=== PATIENT | female | born 1950 | race Asian ===

== ENCOUNTER 2018-08-06 10:16 | Inpatient (IN) | payer OTHER, MEDICAID ==
[~2018-08-06 10:16] MED LIST: BUPIVACAINE 0.75%/DEXT (SPINAL) 2 ML INJ
[2018-08-06] MEDS ORDERED: LABETALOL HCL 20MG INJ IV (12:30)
[2018-08-06] MEDS ORDERED: MEPERIDINE 25 MG INJ IV (12:30)
[2018-08-06] MEDS ORDERED: HYDROmorphONE 1 MG/5 ML IV SYRINGE IV ×3 (12:30)
[2018-08-06] MEDS ORDERED: ONDANSETRON 4 MG INJ IV (12:30)
[2018-08-06] MEDS ORDERED: hydrALAzine 20 MG INJ IV (12:30)
[2018-08-06] MEDS ORDERED: PROPOFOL 20 ML (12:44)
[2018-08-06] MEDS ORDERED: CEFAZOLIN 1 GM INJ (12:44)
[2018-08-06] MEDS ORDERED: ONDANSETRON 4 MG INJ (12:45)
[2018-08-06] MEDS ORDERED: MIDAZOLAM 1 MG/ML 2 ML INJ (12:45)
[2018-08-06] MEDS ORDERED: morphine SULFATE/PF (10 MG/10 ML) INJ (12:45)
[2018-08-06] MEDS ORDERED: FENTAnyl 50 MCG/ML VIAL (12:45)
[2018-08-06] MEDS ORDERED: METOCLOPRAMIDE 10 MG INJ (12:45)
[2018-08-06] MEDS: TRANEXAMIC ACID 1,000 MG in DEXTROSE 5% 100 ML IV (13:00)
[2018-08-06] MEDS ORDERED: ACETAMINOPHEN 1000MG/100ML IV 100 ML (13:26)
[2018-08-06] MEDS ORDERED: PHENYLephrine (100 MCG/ML) 5ML SYG (13:27)
[2018-08-06] MEDS ORDERED: ROPIVACAINE 0.2% 20 ML VIAL (15:25)
[2018-08-06 17:07] LABS: HEMATOCRIT 32.8 % (37.0-47.0); HEMOGLOBIN 10.7 g/dl (12.0-16.0)
[2018-08-06] MEDS ORDERED: DIPHENHYDRAMINE 50 MG INJ (17:16)
[2018-08-06] MEDS: DIPHENHYDRAMINE 50 MG INJ IV (17:17)
[2018-08-06] MEDS: CEFAZOLIN 1 GM/50 ML (PMX) 50 ML IVPB (17:23)
[2018-08-06 17:26] LABS: ANION GAP 9 (5-13); BLOOD UREA NITROGEN 22 mg/dl (7-20); CALCIUM 8.9 mg/dl (8.4-10.2); CARBON DIOXIDE 24 mmol/L (21-31); CHLORIDE 108 mmol/L (97-110); CREATININE 0.89 mg/dl (0.44-1.00); Estimated GFR > 60 mL/min (>60); GLUCOSE 115 mg/dl (70-220); SODIUM 141 mmol/L (135-144)
[2018-08-06] MEDS: DEXTROSE 5%-LR 1,000 ML IV (19:30)
[2018-08-06] MEDS: DIPHENHYDRAMINE 25 MG CAP PO (22:52)
[2018-08-07] MEDS ORDERED: GLUCOSE GEL 15 GRAM TUBE PO ×2 (01:00)
[2018-08-07] MEDS ORDERED: GLUCOSE GEL 15 GRAM TUBE BUCCAL (01:00)
[2018-08-07] MEDS ORDERED: GLUCAGON 1 MG INJ IM (01:00)
[2018-08-07] MEDS ORDERED: DEXTROSE 50% 50 ML SYRINGE IV ×2 (01:00)
[2018-08-07] MEDS: ACCU-CHEK XX (01:20)
[2018-08-07] MEDS: DIPHENHYDRAMINE 25 MG CAP PO (01:27)
[2018-08-07] MEDS: SOD CHLORIDE 0.9% 1,000 ML IV (01:27)
[2018-08-07] MEDS: CEFAZOLIN 1 GM/50 ML (PMX) 50 ML IVPB ×2 (01:28→09:03)
[2018-08-07] MEDS: INSULIN GLARGINE [LANTus] (100 UNITS/ML) SYG SC ×2 (03:53→20:21)
[2018-08-07 05:21] LABS: ADD MAN DIFF? NO
[2018-08-07 05:32] LABS: BASOPHILS % 0.3 % (0.0-2.0); EOSINOPHILS # 0.1 10^3/ul (0.0-0.5); EOSINOPHILS % 0.9 % (0.0-7.0); HEMATOCRIT 32.3 % (37.0-47.0); HEMOGLOBIN 10.7 g/dl (12.0-16.0); LYMPHOCYTES # 1.4 10^3/ul (0.8-2.9); LYMPHOCYTES % 14.2 % (15.0-51.0); MEAN CORPUSCULAR HEMOGLOBIN 31.6 pg (29.0-33.0); MEAN CORPUSCULAR HGB CONC 33.1 g/dl (32.0-37.0); MEAN CORPUSCULAR VOLUME 95.3 fl (82.0-101.0); MEAN PLATELET VOLUME 11.1 fl (7.4-10.4); MONOCYTE # 0.7 10^3/ul (0.3-0.9); MONOCYTES % 6.9 % (0.0-11.0); NEUTROPHIL # 7.4 10^3/ul (1.6-7.5); NEUTROPHILS % 77.2 % (39.0-77.0); PLATELET COUNT 199 10^3/UL (140-415); RED BLOOD COUNT 3.39 10^6/ul (4.20-5.40); RED CELL DISTRIBUTION WIDTH 13.8 % (11.5-14.5)
[2018-08-07 05:32] LABS: WHITE BLOOD COUNT 9.6 10^3/ul (4.8-10.8)
[2018-08-07 05:58] LABS: ANION GAP 9 (5-13); BLOOD UREA NITROGEN 22 mg/dl (7-20); CALCIUM 9.1 mg/dl (8.4-10.2); CARBON DIOXIDE 27 mmol/L (21-31); CHLORIDE 104 mmol/L (97-110); CREATININE 0.84 mg/dl (0.44-1.00); Estimated GFR > 60 mL/min (>60); GLUCOSE 180 mg/dl (70-220); SODIUM 140 mmol/L (135-144)
[2018-08-07] MEDS: morphine 2 MG INJ IV ×2 (06:16→12:05)
[2018-08-07] MEDS: LEVOTHYROXINE 50 MCG TAB PO (06:17)
[2018-08-07] MEDS: INSULIN ASPART [NOVOLOG] 3 ML PEN SC ×7 (07:50→20:21)
[2018-08-07] MEDS: LOSARTAN 50 MG TAB PO (09:03)
[2018-08-07] MEDS: HYDROCODONE/APAP (5/325) TAB PO ×3 (09:12→20:12)
[2018-08-07] MEDS ORDERED: hydrOXYzine HCL 25 MG TAB PO (12:00)
[2018-08-07] MEDS: KETOROLAC 15 MG INJ IV (17:57)
[2018-08-07] MEDS: ATORVASTATIN 10 MG TAB PO (20:12)
[2018-08-07] MEDS: ASPIRIN (EC) 325 MG TAB PO (20:12)
[2018-08-07] MEDS ORDERED: INSULIN GLARGINE [LANTus] (100 UNITS/ML) SYG SC (21:00)
[2018-08-08] MEDS: HYDROCODONE/APAP (5/325) TAB PO ×6 (02:06→22:11)
[2018-08-08 05:12] LABS: ADD MAN DIFF? NO
[2018-08-08 05:17] LABS: WHITE BLOOD COUNT 10.2 10^3/ul (4.8-10.8)
[2018-08-08 05:17] LABS: BASOPHILS % 0.4 % (0.0-2.0); EOSINOPHILS # 0.2 10^3/ul (0.0-0.5); HEMATOCRIT 31.2 % (37.0-47.0); HEMOGLOBIN 10.5 g/dl (12.0-16.0); LYMPHOCYTES # 1.7 10^3/ul (0.8-2.9); LYMPHOCYTES % 16.9 % (15.0-51.0); MEAN CORPUSCULAR HEMOGLOBIN 31.3 pg (29.0-33.0); MEAN CORPUSCULAR HGB CONC 33.7 g/dl (32.0-37.0); MEAN CORPUSCULAR VOLUME 93.1 fl (82.0-101.0); MEAN PLATELET VOLUME 10.7 fl (7.4-10.4); MONOCYTES % 9.3 % (0.0-11.0); NEUTROPHIL # 7.2 10^3/ul (1.6-7.5); NEUTROPHILS % 70.8 % (39.0-77.0); PLATELET COUNT 186 10^3/UL (140-415); RED BLOOD COUNT 3.35 10^6/ul (4.20-5.40); RED CELL DISTRIBUTION WIDTH 13.3 % (11.5-14.5)
[2018-08-08 05:32] LABS: ANION GAP 9 (5-13); BLOOD UREA NITROGEN 20 mg/dl (7-20); CALCIUM 9.4 mg/dl (8.4-10.2); CARBON DIOXIDE 27 mmol/L (21-31); CHLORIDE 102 mmol/L (97-110); CREATININE 0.97 mg/dl (0.44-1.00); Estimated GFR 57 mL/min (>60); GLUCOSE 147 mg/dl (70-220); POTASSIUM 4.1 mmol/L (3.5-5.1); SODIUM 138 mmol/L (135-144)
[2018-08-08] MEDS: LEVOTHYROXINE 50 MCG TAB PO (06:24)
[2018-08-08] MEDS: ASPIRIN (EC) 325 MG TAB PO ×2 (09:05→21:30)
[2018-08-08] MEDS: LOSARTAN 50 MG TAB PO (09:05)
[2018-08-08] MEDS: INSULIN ASPART [NOVOLOG] 3 ML PEN SC ×7 (09:06→21:00)
[2018-08-08] MEDS: KETOROLAC 15 MG INJ IV (16:06)
[2018-08-08] MEDS: DOCUSATE SODIUM 100 MG CAP PO (21:29)
[2018-08-08] MEDS: ATORVASTATIN 10 MG TAB PO (21:30)
[2018-08-08] MEDS: INSULIN GLARGINE [LANTus] (100 UNITS/ML) SYG SC (21:32)
[2018-08-09] MEDS: HYDROCODONE/APAP (5/325) TAB PO ×6 (03:29→21:11)
[2018-08-09 05:38] LABS: ADD MAN DIFF? NO
[2018-08-09 05:42] LABS: BASOPHIL # 0.1 10^3/ul (0.0-0.1); BASOPHILS % 0.5 % (0.0-2.0); EOSINOPHILS # 0.3 10^3/ul (0.0-0.5); EOSINOPHILS % 2.7 % (0.0-7.0); HEMATOCRIT 31.1 % (37.0-47.0); HEMOGLOBIN 10.4 g/dl (12.0-16.0); LYMPHOCYTES # 1.6 10^3/ul (0.8-2.9); LYMPHOCYTES % 15.7 % (15.0-51.0); MEAN CORPUSCULAR HEMOGLOBIN 31.1 pg (29.0-33.0); MEAN CORPUSCULAR HGB CONC 33.4 g/dl (32.0-37.0); MEAN CORPUSCULAR VOLUME 93.1 fl (82.0-101.0); MONOCYTE # 0.9 10^3/ul (0.3-0.9); MONOCYTES % 8.4 % (0.0-11.0); NEUTROPHIL # 7.6 10^3/ul (1.6-7.5); NEUTROPHILS % 72.2 % (39.0-77.0); PLATELET COUNT 198 10^3/UL (140-415); RED BLOOD COUNT 3.34 10^6/ul (4.20-5.40); RED CELL DISTRIBUTION WIDTH 13.4 % (11.5-14.5)
[2018-08-09 05:42] LABS: WHITE BLOOD COUNT 10.5 10^3/ul (4.8-10.8)
[2018-08-09] MEDS: LEVOTHYROXINE 50 MCG TAB PO (06:06)
[2018-08-09 06:16] LABS: ANION GAP 6 (5-13); BLOOD UREA NITROGEN 23 mg/dl (7-20); CALCIUM 9.3 mg/dl (8.4-10.2); CARBON DIOXIDE 29 mmol/L (21-31); CHLORIDE 104 mmol/L (97-110); CREATININE 0.99 mg/dl (0.44-1.00); Estimated GFR 56 mL/min (>60); GLUCOSE 118 mg/dl (70-220); POTASSIUM 4.3 mmol/L (3.5-5.1); SODIUM 139 mmol/L (135-144)
[2018-08-09] MEDS: INSULIN ASPART [NOVOLOG] 3 ML PEN SC ×7 (07:50→20:29)
[2018-08-09] MEDS: ASPIRIN (EC) 325 MG TAB PO ×2 (09:07→20:26)
[2018-08-09] MEDS: POLYETHYLENE GLYCOL 17 GM PACKET PO (09:07)
[2018-08-09] MEDS: LOSARTAN 50 MG TAB PO (09:07)
[2018-08-09] MEDS: DOCUSATE SODIUM 100 MG CAP PO ×2 (09:07→20:27)
[2018-08-09] MEDS: ATORVASTATIN 10 MG TAB PO (20:26)
[2018-08-09] MEDS: INSULIN GLARGINE [LANTus] (100 UNITS/ML) SYG SC (20:29)
[2018-08-10 05:26] LABS: ADD MAN DIFF? NO
[2018-08-10 05:26] LABS: WHITE BLOOD COUNT 10.8 10^3/ul (4.8-10.8)
[2018-08-10 05:27] LABS: BASOPHIL # 0.1 10^3/ul (0.0-0.1); BASOPHILS % 0.6 % (0.0-2.0); EOSINOPHILS # 0.3 10^3/ul (0.0-0.5); EOSINOPHILS % 2.7 % (0.0-7.0); HEMATOCRIT 31.2 % (37.0-47.0); HEMOGLOBIN 10.4 g/dl (12.0-16.0); LYMPHOCYTES # 2.2 10^3/ul (0.8-2.9); LYMPHOCYTES % 20.2 % (15.0-51.0); MEAN CORPUSCULAR HEMOGLOBIN 30.8 pg (29.0-33.0); MEAN CORPUSCULAR HGB CONC 33.3 g/dl (32.0-37.0); MEAN CORPUSCULAR VOLUME 92.3 fl (82.0-101.0); MEAN PLATELET VOLUME 10.9 fl (7.4-10.4); MONOCYTE # 0.8 10^3/ul (0.3-0.9); MONOCYTES % 7.5 % (0.0-11.0); NEUTROPHIL # 7.4 10^3/ul (1.6-7.5); NEUTROPHILS % 68.6 % (39.0-77.0); PLATELET COUNT 244 10^3/UL (140-415); RED BLOOD COUNT 3.38 10^6/ul (4.20-5.40); RED CELL DISTRIBUTION WIDTH 13.6 % (11.5-14.5)
[2018-08-10] MEDS: HYDROCODONE/APAP (5/325) TAB PO ×2 (05:55→12:16)
[2018-08-10] MEDS: SENNA TAB PO (05:58)
[2018-08-10] MEDS: LEVOTHYROXINE 50 MCG TAB PO (06:01)
[2018-08-10 06:02] LABS: ANION GAP 9 (5-13); BLOOD UREA NITROGEN 20 mg/dl (7-20); CALCIUM 9.8 mg/dl (8.4-10.2); CARBON DIOXIDE 29 mmol/L (21-31); CHLORIDE 105 mmol/L (97-110); CREATININE 0.97 mg/dl (0.44-1.00); Estimated GFR 57 mL/min (>60); GLUCOSE 85 mg/dl (70-220); POTASSIUM 4.3 mmol/L (3.5-5.1); SODIUM 143 mmol/L (135-144)
[2018-08-10] MEDS: INSULIN ASPART [NOVOLOG] 3 ML PEN SC ×6 (07:50→17:44)
[2018-08-10] MEDS: DOCUSATE SODIUM 100 MG CAP PO (08:15)
[2018-08-10] MEDS: POLYETHYLENE GLYCOL 17 GM PACKET PO (08:16)
[2018-08-10] MEDS: ASPIRIN (EC) 325 MG TAB PO (08:16)
[2018-08-10] MEDS: LOSARTAN 50 MG TAB PO (08:16)
[2018-08-10] MEDS: BISACODYL 10 MG SUPP PR (15:10)
== END 2018-08-10 19:00 | disposition home health service (06) | DRG 470 ==
LOC: REC 10:16 → MS1 18:18
PROVIDERS: Specialist
PROC: 0SRC069 Replacement of Right Knee Joint with Oxidized Zirconium on Polyethylene Synthetic Substitute, Cemented, Open Approach (ICD-10-PCS; principal; 2018-08-06 12:30)
DX: M17.11 Unilateral primary osteoarthritis, right knee (principal); E03.9 Hypothyroidism, unspecified; E11.9 Type 2 diabetes mellitus without complications; E78.5 Hyperlipidemia, unspecified; I10 Essential (primary) hypertension; L29.9 Pruritus, unspecified; E66.9 Obesity, unspecified; Z68.37 Body mass index [BMI] 37.0-37.9, adult; Z79.4 Long term (current) use of insulin; Z79.82 Long term (current) use of aspirin
CPT/HCPCS: 80048; 82962; 85014; 85018; 85025; 87086; 88304; 88311; 97110; 97116; 97162; 97530